=== PATIENT | female | born 1960 | race Hispanic/Latino ===

== ENCOUNTER 2021-04-26 16:13 | Inpatient (IN) | payer SELFPAY ==
[~2021-04-26] VITALS: Ht 152.4 cm; Wt 72.7 kg
[2021-04-26 18:19] LABS: BASOPHILS % (AUTO) 0.1 % (0.0-5.0); EOSINOPHILS % (AUTO) 0.1 % (0.0-8.0); HEMATOCRIT 40.3 % (36-48); LYMPHOCYTES % (AUTO) 6.7 % (21.0-51.0); MEAN CORPUSCULAR HEMOGLOBIN 29.8 pg (27.0-33.0); MEAN CORPUSCULAR HGB CONC 33.7 g/dL (32.0-36.0); MEAN CORPUSCULAR VOLUME 88.2 fL (79-99); MONOCYTES % (AUTO) 0.6 % (3.0-13.0); NEUTROPHILS % (AUTO) 92.5 % (40.0-77.0); PLATELET COUNT (AUTO) 211 K/uL (130-400); RED BLOOD CELL COUNT(AUTO) 4.57 MIL/uL (4.00-5.50); RED CELL DISTRIBUTION WIDTH 12.6 % (11.0-15.5); WHITE BLOOD COUNT (AUTO) 7.2 K/uL (4.8-10.8)
[2021-04-26 18:28] LABS: CREATININE 1.3 mg/dL (0.5-1.5); POTASSIUM 3.8 mmol/L (3.5-5.1)
[2021-04-26 18:42] LABS: ALBUMIN 3.3 g/dL (3.5-5.0); BILIRUBIN,TOTAL 2.4 mg/dL (0.2-1.0)
[2021-04-26 18:46] VITALS: BP 127/74
[2021-04-26] MEDS ORDERED: ONDANSETRON HCL 4 MG/2 ML VIAL IVP SCH (19:00)
[2021-04-26] MEDS ORDERED: ACETAMINOPHEN 325 MG TAB PO ONE (19:00)
[2021-04-26] MEDS ORDERED: SODIUM CHLORIDE 0.9% 1000ML 1,000 ML IV SCH (19:00)
[2021-04-26] MEDS ORDERED: INSULIN HUMULIN R 100 UNIT/ML 3ML IV STA (19:23)
[2021-04-26 20:12] LABS: APPEARANCE,URINE Turbid (CLEAR); BILIRUBIN,URINE Small (NEGATIVE); COLOR,URINE Dark Yellow (YELLOW); GLUCOSE, URINE (UA) >=1000 mg/dL (NEGATIVE); KETONES,URINE Negative (NEGATIVE); LEUKOCYTE ESTERASE ,URINE Small (NEGATIVE); NITRATE,URINE Negative (NEGATIVE); OCCULT BLOOD,URINE Moderate (NEGATIVE); PROTEIN,URINE POS 2+ mg/dL (NEGATIVE)
[2021-04-26 20:33] LABS: BACTERIA,URINE Many /HPF (None Seen); MUCUS,URINE Few LPF (None Seen); SQUAMOUS EPITHELIAL CELL,UR Moderate /HPF (0-2)
[2021-04-26 20:57] VITALS: BP 97/47
[2021-04-26] MEDS ORDERED: FENTANYL CITRATE PF 50 MCG/1 ML 2ML VIAL IVP ONE (22:00)
[2021-04-26] MEDS ORDERED: PROMETHAZINE HCL 25 MG/ML 1ML AMPULE IM SCH (23:45)
[2021-04-27] VITALS (8 sets, daily range): BP systolic 106–139; BP diastolic 50–97
[2021-04-27] MEDS: SODIUM CHLORIDE 0.9% 1000ML 1,000 ML IV SCH ×3 (00:25→21:42)
[2021-04-27 00:28] LABS: CRP QUANTITATIVE 36.4 mg/L (0.00-9.0)
[2021-04-27] MEDS ORDERED: SODIUM CHLORIDE 0.9% 100 ML IV ONE (00:28)
[2021-04-27] MEDS: ZOSYN 3.375GM+NS 50ML 50 ML IV SCH ×4 (00:38→23:34)
[2021-04-27 00:56] LABS: HEMOGLOBIN A1C 12.7 % (4.0-6.0)
[2021-04-27] MEDS: MORPHINE 4 MG SYG (4MG/1ML) IV PRN ×2 (04:58→08:58)
[2021-04-27] MEDS: INSULIN HUMULIN R 100 UNIT/ML 3ML SQ SCH ×4 (07:30→23:34)
[2021-04-27 08:12] LABS: BASOPHILS % (AUTO) 0.2 % (0.0-5.0); EOSINOPHILS % (AUTO) 0.1 % (0.0-8.0); HEMATOCRIT 36.5 % (36-48); LYMPHOCYTES % (AUTO) 4.1 % (21.0-51.0); MEAN CORPUSCULAR HGB CONC 33.4 g/dL (32.0-36.0); MEAN CORPUSCULAR VOLUME 89.9 fL (79-99); MONOCYTES % (AUTO) 4.2 % (3.0-13.0); NEUTROPHILS % (AUTO) 90.8 % (40.0-77.0); PLATELET COUNT (AUTO) 184 K/uL (130-400); RED BLOOD CELL COUNT(AUTO) 4.06 MIL/uL (4.00-5.50); RED CELL DISTRIBUTION WIDTH 13.2 % (11.0-15.5); WHITE BLOOD COUNT (AUTO) 16.5 K/uL (4.8-10.8)
[2021-04-27] MEDS ORDERED: GADOTERATE MEGLUMINE 10 MMOL/20 ML VIAL IV ONE (08:19)
[2021-04-27 08:34] LABS: ALBUMIN 2.9 g/dL (3.5-5.0); BILIRUBIN,TOTAL 3.6 mg/dL (0.2-1.0); CREATININE 1.4 mg/dL (0.5-1.5); POTASSIUM 4.1 mmol/L (3.5-5.1); TOTAL PROTEIN, SERUM 7.1 g/dL (6.0-8.3)
[2021-04-27] MEDS: FAMOTIDINE/PF 20 MG/2 ML VIAL IV SCH ×2 (08:58→21:42)
[2021-04-27] MEDS: ONDANSETRON HCL 4 MG/2 ML VIAL IV PRN (08:58)
[2021-04-27] MEDS ORDERED: GADOTERATE MEGLUMINE 5 MMOL/10 ML VIAL IV ONE (10:30)
[2021-04-27] MEDS ORDERED: ATOR10 PO (13:42)
[2021-04-27] MEDS ORDERED: LABE100T5 PO (13:43)
[2021-04-27] MEDS ORDERED: SERT-439 PO (13:44)
[2021-04-27] MEDS ORDERED: PIOG15TA66 PO (13:45)
[2021-04-27] MEDS ORDERED: CINA30TA5 PO (13:46)
[2021-04-27] MEDS ORDERED: LISI1TAB29 PO (13:47)
[2021-04-27] MEDS ORDERED: LOSA100T58 PO (15:30)
[2021-04-27] MEDS ORDERED: VITAD50000 PO (15:32)
[2021-04-27] MEDS ORDERED: ALEN70TA80 PO (15:34)
[2021-04-27] MEDS ORDERED: INSLAN SQ ×2 (15:36→22:47)
[2021-04-27] MEDS ORDERED: INSULIN GLARGINE 100 UNITS/ML 10 ML VIAL SQ SCH ×2 (18:17→21:00)
[2021-04-27] MEDS ORDERED: INSU100C6 SQ ×3 (22:47)
[2021-04-28] VITALS (24 sets, daily range): BP systolic 128–178; BP diastolic 49–90
[2021-04-28] MEDS: SODIUM CHLORIDE 0.9% 1000ML 1,000 ML IV SCH ×3 (04:05→20:42)
[2021-04-28 05:41] LABS: MEAN CORPUSCULAR HEMOGLOBIN 29.4 pg (27.0-33.0); MEAN CORPUSCULAR HGB CONC 33.6 g/dL (32.0-36.0); MEAN CORPUSCULAR VOLUME 87.5 fL (79-99); RED BLOOD CELL COUNT(AUTO) 3.77 MIL/uL (4.00-5.50); RED CELL DISTRIBUTION WIDTH 13.4 % (11.0-15.5); WHITE BLOOD COUNT (AUTO) 13.9 K/uL (4.8-10.8)
[2021-04-28 05:59] LABS: ALBUMIN 2.4 g/dL (3.5-5.0); BILIRUBIN,TOTAL 3.8 mg/dL (0.2-1.0); CREATININE 1.4 mg/dL (0.5-1.5); POTASSIUM 3.4 mmol/L (3.5-5.1); TOTAL PROTEIN, SERUM 6.6 g/dL (6.0-8.3)
[2021-04-28] MEDS: INSULIN HUMULIN R 100 UNIT/ML 3ML SQ SCH ×4 (06:00→22:19)
[2021-04-28] MEDS: FAMOTIDINE/PF 20 MG/2 ML VIAL IV SCH ×2 (08:45→22:10)
[2021-04-28] MEDS: ZOSYN 3.375GM+NS 50ML 50 ML IV SCH ×3 (08:45→23:35)
[2021-04-28] MEDS: ONDANSETRON HCL 4 MG/2 ML VIAL IV PRN (11:11)
[2021-04-28] MEDS: MORPHINE 2 MG SYG (2MG/1ML) IV PRN (11:11)
[2021-04-28] MEDS ORDERED: IOHEXOL-350 50ML VIAL IV ONE ×2 (14:35→18:05)
[2021-04-28] MEDS ORDERED: SUCCINYLCHOLINE CHLORIDE 20 MG/ML 10 ML VIAL ONE (16:41)
[2021-04-28] MEDS ORDERED: LIDOCAINE PF 100MG/5ML (2%) SYRINGE 5ML ONE (16:41)
[2021-04-28] MEDS ORDERED: ONDANSETRON HCL 4 MG/2 ML VIAL ONE (16:42)
[2021-04-28] MEDS ORDERED: PROPOFOL 10 MG/ML 20ML VIAL IV ONE (16:42)
[2021-04-28] MEDS ORDERED: FENTANYL CITRATE PF 50 MCG/1 ML 2ML VIAL ONE (16:43)
[2021-04-28] MEDS ORDERED: INDOMETHACIN 50 MG SUPP.RECT RC SCH (16:45)
[2021-04-28] MEDS: INSULIN GLARGINE 100 UNITS/ML 10 ML VIAL SQ SCH (22:20)
[2021-04-29] VITALS (7 sets, daily range): BP systolic 130–165; BP diastolic 64–72
[2021-04-29] MEDS: SODIUM CHLORIDE 0.9% 1000ML 1,000 ML IV SCH (06:09)
[2021-04-29] MEDS ORDERED: INSULIN HUMULIN R 100 UNIT/ML 3ML ONE (06:28)
[2021-04-29] MEDS: INSULIN HUMULIN R 100 UNIT/ML 3ML SQ SCH ×6 (06:30→21:46)
[2021-04-29 06:34] LABS: BASOPHILS % (AUTO) 0.2 % (0.0-5.0); EOSINOPHILS % (AUTO) 0.7 % (0.0-8.0); HEMATOCRIT 31.5 % (36-48); MEAN CORPUSCULAR VOLUME 87.7 fL (79-99); MONOCYTES % (AUTO) 11.9 % (3.0-13.0); NEUTROPHILS % (AUTO) 72.2 % (40.0-77.0); PLATELET COUNT (AUTO) 101 K/uL (130-400); RED BLOOD CELL COUNT(AUTO) 3.59 MIL/uL (4.00-5.50); RED CELL DISTRIBUTION WIDTH 13.5 % (11.0-15.5); WHITE BLOOD COUNT (AUTO) 12.5 K/uL (4.8-10.8)
[2021-04-29 06:57] LABS: BILIRUBIN,TOTAL 4.4 mg/dL (0.2-1.0); CREATININE 1.1 mg/dL (0.5-1.5); POTASSIUM 3.7 mmol/L (3.5-5.1); TOTAL PROTEIN, SERUM 6.2 g/dL (6.0-8.3)
[2021-04-29] MEDS: ZOSYN 3.375GM+NS 50ML 50 ML IV SCH ×2 (08:09→17:20)
[2021-04-29] MEDS: FAMOTIDINE/PF 20 MG/2 ML VIAL IV SCH ×2 (08:10→20:00)
[2021-04-29] MEDS: ONDANSETRON HCL 4 MG/2 ML VIAL IV PRN (20:00)
[2021-04-29] MEDS: MORPHINE 2 MG SYG (2MG/1ML) IV PRN (20:01)
[2021-04-29] MEDS: INSULIN GLARGINE 100 UNITS/ML 10 ML VIAL SQ SCH (21:48)
[2021-04-30 00:12] VITALS: BP 151/74
[2021-04-30] MEDS: ZOSYN 3.375GM+NS 50ML 50 ML IV SCH ×3 (00:33→16:00)
[2021-04-30 04:12] VITALS: BP 151/69
[2021-04-30] MEDS: INSULIN HUMULIN R 100 UNIT/ML 3ML SQ SCH ×6 (06:00→17:03)
[2021-04-30 07:30] VITALS: BP 158/76
[2021-04-30 08:17] LABS: BASOPHILS % (AUTO) 0.2 % (0.0-5.0); HEMATOCRIT 33.4 % (36-48); LYMPHOCYTES % (AUTO) 23.8 % (21.0-51.0); MEAN CORPUSCULAR HEMOGLOBIN 29.5 pg (27.0-33.0); MEAN CORPUSCULAR HGB CONC 33.8 g/dL (32.0-36.0); MEAN CORPUSCULAR VOLUME 87.2 fL (79-99); MONOCYTES % (AUTO) 15.8 % (3.0-13.0); NEUTROPHILS % (AUTO) 58.5 % (40.0-77.0); PLATELET COUNT (AUTO) 130 K/uL (130-400); RED BLOOD CELL COUNT(AUTO) 3.83 MIL/uL (4.00-5.50); RED CELL DISTRIBUTION WIDTH 13.4 % (11.0-15.5); WHITE BLOOD COUNT (AUTO) 9.8 K/uL (4.8-10.8)
[2021-04-30 08:28] LABS: POTASSIUM 3.6 mmol/L (3.5-5.1)
[2021-04-30 08:33] LABS: ALBUMIN 2.2 g/dL (3.5-5.0); TOTAL PROTEIN, SERUM 6.8 g/dL (6.0-8.3)
[2021-04-30] MEDS: FAMOTIDINE/PF 20 MG/2 ML VIAL IV SCH (10:01)
[2021-04-30 11:00] VITALS: BP 167/87
[2021-04-30] MEDS ORDERED: AMOX-426 PO (11:56)
[2021-04-30 16:00] VITALS: BP 164/80
== END 2021-04-30 19:10 | disposition home or self-care (01) | DRG 445 ==
LOC: EDH 16:13 → EDHIP 23:48 → OBSVTOIN 23:48 → 3DH 04-27 20:35
PROVIDERS: ADMIT Internal Medicine; ATTEND Internal Medicine
PROC: 0FC98ZZ Extirpation of Matter from Common Bile Duct, Via Natural or Artificial Opening Endoscopic (ICD-10-PCS; principal; 2021-04-28)
PROC: BF101ZZ Fluoroscopy of Bile Ducts using Low Osmolar Contrast (ICD-10-PCS; 2021-04-28)
DX: K80.32 Calculus of bile duct with acute cholangitis without obstruction (principal); E87.1 Hypo-osmolality and hyponatremia; N39.0 Urinary tract infection, site not specified; E78.5 Hyperlipidemia, unspecified; E11.65 Type 2 diabetes mellitus with hyperglycemia; I10 Essential (primary) hypertension; B96.20 Unspecified Escherichia coli [E. coli] as the cause of diseases classified elsewhere; G62.9 Polyneuropathy, unspecified; K57.30 Diverticulosis of large intestine without perforation or abscess without bleeding; K76.0 Fatty (change of) liver, not elsewhere classified; Z79.4 Long term (current) use of insulin; Z83.3 Family history of diabetes mellitus; Z90.49 Acquired absence of other specified parts of digestive tract; Z90.710 Acquired absence of both cervix and uterus; R79.89 Other specified abnormal findings of blood chemistry; Z20.822 Contact with and (suspected) exposure to COVID-19
CPT/HCPCS: 36415; 43262; 43264; 74176; 74183; 74330; 80053; 80061; 81001; 82150; 82948; 83036; 83690; 85025; 85027; 86140; 87077; 87088; 87186; 87426; 87635; A4606; C1769; C1773; C9803; G0378; G9654; J0330; J1815; J2001; J2270; J2405; J2543; J2550; J2704; J3010; J3490; J7030; Q9967